=== PATIENT | female | born 1970 | race Caucasian/White ===

== ENCOUNTER 2017-04-11 11:52 | Outpatient (CLI) | payer OTHER ==
[2017-04-11 12:05] LABS: Hemoglobin 12.8 g/dL (12.0-16.0); Mean Corpuscular HGB CONC 31.4 g/dL (32.0-36.0); Mean Corpuscular Hemoglobin 29.1 pg (27.0-31.0); Mean Corpuscular Volume 92.7 fl (81.0-99.0); Mean Platelet Volume 7.6 fL (7.4-10.4); Platelet Count 423 thou/uL (130-400); RBC Distribution Width 15.2 % (11.5-14.5); Red Blood Cell (RBC) Count 4.38 mill/uL (4.20-5.40); White Blood Cell (WBC) Count 7.3 thou/uL (4.8-10.8)
[2017-04-11 12:28] LABS: BHCG - Serum Negative (NEGATIVE); Pregs Control Background? CLEAR/WHITE (CLR/WHITE); Pregs Control Bar Appear? YES (CONTROL BAR)
== END 2017-04-11 11:53 | disposition home or self-care (01) ==
LOC: LABBT 11:52
PROVIDERS: ATTEND Obstetrics & Gynecology
DX: Z01.812 Encounter for preprocedural laboratory examination (principal); N92.0 Excessive and frequent menstruation with regular cycle; D21.9 Benign neoplasm of connective and other soft tissue, unspecified
CPT/HCPCS: 84703; 85027; 86850; 86900; 86901

== ENCOUNTER 2017-04-14 05:49 | Day surgery (SDC) | payer OTHER ==
[2017-04-11 10:51] VITALS: BMI 29.7
--- NOTE | 2017-04-11 12:26 | HP ---
DATE OF PLANNED PROCEDURE: 04/14/2017 PREOPERATIVE DIAGNOSES: 1. Menorrhagia with fibroid uterus. 2. History of anemia. PROCEDURE TO BE PERFORMED: Total laparoscopic hysterectomy with bilateral salpingectomy. HISTORY OF PRESENT ILLNESS: Ms. Sonja Lyn is a 46-year-old G4, P3-0-1-3 who was referred to co f or evaluation of menorrhagia and an abnormal ultrasound. The patient gives a history of many years o f heavy bleeding, passing clots and anemia. She reports minimal cramping. The patient has a long hi story of anemia and in 12/2016 her hemoglobin was approximately 7-8. The patient does not have a his tory of blood transfusion. On the patient's ultrasound she has an enlarged uterus with a 7 cm fibroi d and a thickened endometrial stripe. Her ovaries appear normal. The patient's only other complaint is vaginal discharge with odor that has been going on for approximately 6 months. The patient carly es definitive surgical management with a hysterectomy. The patient's most recent hemoglobin in the o ffice on 03/25/2017 was 10.9. On counseling the patient does accept a blood transfusion if needed du ring or after her procedure. Also of note the patient did try oral contraceptives with continued men orrhagia. MEDICATIONS: Microgestin 120 and iron supplement. ALLERGIES: No known drug or latex allergies. PAST SURGICAL HISTORY: None. OBSTETRICAL HISTORY: Three vaginal deliveries. GYNECOLOGIC HISTORY: Normal Pap smear in 2017. Regular menstrual periods as stated above. No histo ry of STD or PID. SOCIAL HISTORY: The patient does not smoke cigarettes or use tobacco. She does not drink alcohol. She does not use drugs. 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 FAMILY HISTORY: Significant for endometrial cancer in her mother. No hypertension, heart disease or diabetes. No breast, ovarian, or colon cancers noted. REVIEW OF SYSTEMS: Negative except as stated above. PHYSICAL EXAMINATION: VITAL SIGNS: Blood pressure 110/70, weight 160 pounds, BMI 29. GENERAL: No acute distress. Alert and oriented. CARDIOVASCULAR: Regular rate and rhythm. LUNGS: Nonlabored breathing. ABDOMEN: Soft, nontender, no palpable masses, no hernias, no hepatosplenomegaly. GENITOURINARY: Normal external female genitalia. Normal vaginal mucosa, no vaginal or cervical lesi ons. Uterus is enlarged, nontender, no adnexal masses. MUSCULOSKELETAL: Normal range of motion. SKIN: No rashes. LABORATORY DATA: Last hemoglobin 10.9 on 03/25/2017. Endometrial biopsy with late secretory phase e ndometrium. Ultrasound with enlarged uterus with heterogeneous mass that displaces the endometrium, likely a fibroid and approximately 7.3 cm in size. The uterus, otherwise measures 9.5 x 10.6 x 11.6 cm, normal appearing ovaries. ASSESSMENT AND PLAN: Ms. Sonja Lyn is a 46-year-old multiparous female with a history of anemia and long history of menorrhagia who has tried medical management in the past and now desires definiti ve surgical management with a hysterectomy. On the patient's ultrasound she is known to have a fibro id uterus as well as a thickened endometrial stripe with a biopsy that was negative for hyperplasia o r malignancy. The patient has been counseled on her management options and desires to proceed with r obotic assisted total laparoscopic hysterectomy with bilateral salpingectomy. The patient understand s the risks are to include, but not limited to bleeding, infection, damage to intraabdominal organs, possible need for emergent laparotomy, possible need for future medical and/or surgical management, e specially if the pathology is concerning for malignancy. The patient's questions have been answered to her satisfaction. The procedure has been explained in detail by myself in Filipino as well as by h er daughter in Filipino with verbalized understanding. The patient also understands that with hystere ctomy there is no future fertility and that she will no longer be able to conceive or bear children. The patient's questions have been answered to her satisfaction, and she desires to proceed with the procedure as listed above.
[2017-04-14] MEDS ORDERED: CEFAZOLIN/Water 2 GM/20 ML SYRINGE ONE (06:02)
[2017-04-14] MEDS ORDERED: Bupivacaine HCl 0.5%/Epinephrine 1:200,000/PF 30 ml Vial ONE (06:32)
[2017-04-14] MEDS ORDERED: Fentanyl 250 MCG/5 ML VIAL ONE ×2 (07:05→10:28)
[2017-04-14] MEDS ORDERED: Famotidine/PF 20 mg/2ml Vial ONE (07:59)
[2017-04-14] MEDS ORDERED: Albuterol Sulfate HFA (OR ONLY) ONE (10:58)
[2017-04-14] MEDS ORDERED: SUGAMMADEX SODIUM 200 MG/2 ML VIAL ONE (11:05)
[2017-04-14] MEDS ORDERED: Promethazine HCl 25 MG/ML VIAL IM PRN ×2 (11:18→12:07)
[2017-04-14] MEDS ORDERED: Promethazine HCl 25 MG/ML VIAL SLOW IVP PRN (11:18)
[2017-04-14] MEDS ORDERED: Ondansetron HCl/PF 4 MG/2 ML Vial IVP PRN ×2 (11:18→12:07)
[2017-04-14] MEDS ORDERED: Meperidine HCl/PF 25 MG/ML VIAL SLOW IVP PRN (11:18)
[2017-04-14] MEDS ORDERED: Morphine Sulfate 2 MG/ML SYRINGE SLOW IVP PRN (11:18)
[2017-04-14] MEDS ORDERED: Ketorolac Tromethamine 30 MG/ML VIAL IVP SCH (12:00)
[2017-04-14] MEDS ORDERED: Morphine 4 MG/ML Carpuject SLOW IVP PRN (12:07)
[2017-04-14] MEDS ORDERED: diphenhydrAMINE 25 MG CAP PO PRN (12:07)
[2017-04-14] MEDS ORDERED: Acetaminophen/Codeine 30-300mg Tablet PO PRN (12:07)
[2017-04-14] MEDS ORDERED: Bisacodyl 10 MG SUPP PR PRN (12:07)
[2017-04-14] MEDS ORDERED: Simethicone Chewable 80 MG TAB PO PRN (12:07)
[2017-04-14] MEDS ORDERED: Morphine 5 MG/ML SYRINGE SLOW IVP PRN (12:16)
[2017-04-14] MEDS: Lactated Ringer's 1,000 ML IV SCH ×2 (12:41→22:23)
[2017-04-14] MEDS: Sodium Chloride 0.9% 1,000 ML IV SCH (13:48)
--- NOTE | 2017-04-14 15:11 | OP ---
DATE OF PROCEDURE: 04/14/2017 PREOPERATIVE DIAGNOSES: Menorrhagia, dysmenorrhea, fibroid uterus. POSTOPERATIVE DIAGNOSES: Menorrhagia, dysmenorrhea, fibroid uterus. PROCEDURE PERFORMED: Robotic-assisted total laparoscopic hysterectomy with bilateral salpingectomy, lysis of adhesions, and extracorporeal uterine morcellation. SURGEON: Ziyad Turcios D.O. [facility] DIRECTOR: Martha Rodriguez M.D. ANESTHESIA: GETA per Dr. Chapa. COMPLICATIONS: None. ESTIMATED BLOOD LOSS: 75 mL. INTRAOPERATIVE FINDINGS: 1. Enlarged fibroid uterus. Normal-appearing fallopian tubes and ovaries. 2. Uterine specimen too large to pass through the vaginal cuff. 3. Vaginal cuff hemostatic. 4. Filmy adhesions of the omentum to the anterior abdominal wall and uterus. PROCEDURE DETAILS: The patient was taken back to the OR with IV fluids running. Once she was in the OR, she was placed in dorsal supine position and anesthesia was obtained. After the patient was asl eep, she was placed in low dorsal lithotomy position with her arms positioned at her side. The abdom en and vagina were then prepped and draped in normal fashion for gynecologic laparoscopy. The bladde r was drained, and a Street catheter with a Harriett syringe at the Street tip were assembled and placed in the routine fashion, 300 mL of urine were noted at this time. An operative speculum was then plac ed into the vagina. Paracervix was noted with no cervical or vaginal lesions. The uterus sounded to approximately 11 cm. A FAVIAN Shelley manipulator was assembled with a 10 cm tip and a 4 cm coring. It w as placed into the uterus and vagina in normal fashion. Once the uterine manipulator was in place, t he speculum and tenaculum were removed. The surgeon's gloves were changed and attention was turned t o laparoscopic portion of the case with the uterine manipulator in, and the uterus palpated to approx imately 2-3 cm above the umbilicus. A 0.25% lidocaine was placed underneath the skin and the subcuta neous tissue and fascia. A 12 mm skin incision was made with the scalpel and a Veress needle was pas sed through the skin incision into the peritoneal cavity and the abdomen was then insufflated without difficulty. After the abdomen was insufflated, a 12 mm trocar was placed through this site and the laparoscope was placed through the port with the above findings noted. Next, under direct visualizat ion in similar fashion, 3 additional ports were placed with 1 right lower quadrant, 1 left lower quad rant, and 1 right upper quadrant ports placed under direct visualization without difficulty. The two 8 mm ports were placed in the right and left lower quadrant to be used for docking robotic arms. In the right upper quadrant, an 11 mm port was placed for use by the assistant superintendent. Once all [address], the robotic arms were docked and the surgeon moved to the operative console. Beginning wit h the lysis of adhesions, the filmy omental adhesions were taken off the anterior abdominal wall, erick angelia, and adnexa. This was done primarily with fine dissection with the monopolar scissors and gentle blunt dissection with minimal cautery needed. Once the omentum was freed from the abdominal wall, t he enlarged uterus and adnexa were well visualized. While the uterus was very large, it was noted to be very mobile and adequate space was demonstrated in the adnexa as well as the cul-de-sac for the p lanned dissection. Beginning on the patient's left side, the left fallopian tube was grasped with a grasper, elevated away from the pelvic sidewall, and dissected away using bipolar and monopolar caute ry from the ovary, mesosalpinx, and uterus. It was transected and removed from operative field. The utero-ovarian ligament was then cauterized and divided. There were some adhesions between the left ovary and the uterus that were taken down with monopolar cautery. When the ovary was freed away from the uterus and fell away to the pelvic sidewall, attention was turned to the round ligament on the p atient's left side. It was noted to be very attenuated, but was able to be cauterized and divided in to anterior and posterior leaves. The anterior leaf of the round ligament was taken down towards the anterior aspect of the uterus for planned bladder flap. The posterior leaf was taken down as well. The uterine arteries on the patient's left side were skeletonized and cauterized with bipolar cauter y. The bladder flap on the patient's left side was taken across the anterior aspect of the uterus an d the cervix and the bladder was gently dissected away from the planned colpotomy site. Once the blo od supply was secured on the patient's left side, the dissection was turned to the contralateral side . The right fallopian tube was grasped and elevated away from the pelvic sidewall. Bipolar cautery was used to dissect the right fallopian tube from the ovary, mesosalpinx, and the uterus on the patie nt's right side. It was then transected and removed from the surgical field. The right uterine flor ry ligament was then cauterized with bipolar cautery and scissors were used to dissect it away from t he uterus. The ovary then fell away to the right pelvic sidewall, the round ligament on the patient' s right side was cauterized, incised, and divided into anterior and posterior leaves, was taken down towards the level of the uterine artery, which was then skeletonized with good visualization of the u terine arteries. They were then cauterized with bipolar cautery and transected with monopolar scisso rs with hemostasis noted. The bladder flap was then completed from the right to the contralateral si de. The bladder was easily dissected away from the planned colpotomy site. The bladder was then mora k filled and noted to be well away from the colpotomy site. Once the blood supply had been secured c ircumferentially around the uterus and the bladder dissected well away from the uterus, the colpotomy portion of the procedure began. Beginning posteriorly, the colpotomy was performed using monopolar scissors. Once the uterine specimen was completely dissected from the vaginal cuff, the cervix was g rasped from below and attempted to deliver the uterus through the vaginal cuff. Despite the uterine specimen being surprisingly soft, it proved to be too large for a safe vaginal removal. At this poin t, decision was made to proceed with an ExCITE technique for removal of the uterine specimen. The ut erus was then retracted into the abdomen. A sterile glove was placed into the vagina to retain pneum operitoneum. The vaginal cuff and pedicle sites were copiously irrigated with no areas of bleeding n oted. After irrigating and suctioning dry the pelvis, the vaginal cuff was closed with Stratafix sut ure in 2 layers. After the vaginal cuff was closed, it was irrigated again with a small area of blee ding just noted in between the sutures on the posterior cuff. This was controlled with bipolar caute ry and with hemostasis noted. After the vaginal cuff closure was complete and the pedicles inspected with no areas of bleeding noted, the ureters were identified and noted to be vermiculating through t he pelvis. Next, attention was turned towards the ExCITE portion of the procedure. The robotic arms were undocked from the trocars. The supraumbilical port was removed. The fascia at the level of th e supraumbilical port was then extended to approximately 2-2.5 cm. Once this incision and the fascia had been extended, a small Tejinder retractor was placed through this incision. Once this retractor w as in, the specimen bag was placed through this port site into the pelvis. The laparoscope was then placed through the supraumbilical port with tension around the retractor and the trocar allowing for pneumoperitoneum to be recreated. Under direct visualization, the specimen bag was then opened. The uterine specimen was then placed into the bag. The bag was then cinched with a pursestring suture t hat had been placed into the bag and the string was then brought through the supraumbilical port. Wi th the specimen secured in the bag, the ports were removed. The pneumoperitoneum was released from t he abdomen and the edges of the bag were delivered through the supraumbilical port. The Tejinder retra ctor was then removed. It was replaced within the bag to protect the soft tissue and to allow for be tter visualization during the extracorporeal morcellation. The cervix and the specimen was brought u p through the supraumbilical incision and a coring technique was used to morcellate the entire uterus fibroid cervix specimen. This additional morcellation, at approximately 20-25 minutes to the case, however, was able to be completed all within the self-contained bag. Once morcellation was complete, the bag and Tejinder retractor were removed. The incision was irrigated and dried. The gas was relea sed from the abdomen with all the trocars removed. Fascia was identified at the supraumbilical incis ion and closed with Vicryl suture. After the fascia was closed, all 4 skin incisions were closed wit h Monocryl suture and dressed with Dermabond dressing. The abdomen was cleaned and dried. The vagin a was inspected as well as the vaginal cuff with no bleeding noted. The patient was then taken out o f lithotomy position. She was extubated, and transferred to the recovery room in good condition.
[2017-04-14] MEDS: Acetaminophen/Codeine 30-300mg Tablet PO PRN ×2 (15:15→20:12)
[2017-04-14] MEDS: Ketorolac Tromethamine 30 MG/ML VIAL IVP SCH ×2 (15:58→22:20)
[2017-04-14] MEDS ORDERED: Dexamethasone 20 MG/5 ML VIAL ONE (17:13)
[2017-04-14] MEDS ORDERED: Glycopyrrolate 0.2 MG/ML 5 ML SYRINGE ONE (17:13)
[2017-04-14] MEDS ORDERED: Lidocaine 1% PF 5 ML VIAL ONE (17:13)
[2017-04-14] MEDS ORDERED: PROPOFOL 200 MG/20 ML VIAL ONE (17:13)
[2017-04-14] MEDS ORDERED: Ketorolac Tromethamine 30 MG/ML VIAL ONE (17:13)
[2017-04-14] MEDS ORDERED: Ondansetron HCl/PF 4 MG/2 ML Vial ONE (17:13)
[2017-04-15] MEDS: Sodium Chloride 0.9% 1,000 ML IV SCH ×2 (05:10→05:11)
[2017-04-15] MEDS: Ketorolac Tromethamine 30 MG/ML VIAL IVP SCH (05:53)
[2017-04-15] MEDS: Lactated Ringer's 1,000 ML IV SCH (05:58)
[2017-04-15 06:03] LABS: Hemoglobin 11.5 g/dL (12.0-16.0); Mean Corpuscular HGB CONC 32.4 g/dL (32.0-36.0); Mean Corpuscular Hemoglobin 29.6 pg (27.0-31.0); Mean Corpuscular Volume 91.2 fl (81.0-99.0); Mean Platelet Volume 6.9 fL (7.4-10.4); Platelet Count 362 thou/uL (130-400); RBC Distribution Width 15.2 % (11.5-14.5); White Blood Cell (WBC) Count 11.4 thou/uL (4.8-10.8)
[2017-04-15 07:51] VITALS: BP 134/63; TEMP 98.2
--- NOTE | 2017-04-15 08:21 | PDOC.EVN ---
Event Note - Event Note Event Note: POD1 S: minimal discomfort, ambulating, tolerating reg diet, no bleeding, voiding O: Vital Signs (24 hours) Temp Pulse Resp BP Pulse Ox 04/15/17 07:51 98.2 F 72 20 134/63 04/14/17 20:00 98.7 F 85 18 130/58 L 04/14/17 16:35 98.6 F 92 18 144/65 H 04/14/17 15:20 97 18 136/79 04/14/17 14:30 78 18 140/60 04/14/17 13:30 101 H 18 144/65 H 04/14/17 13:00 96 18 142/65 H 04/14/17 12:30 97.8 F 87 18 151/67 H 04/14/17 12:00 97.8 F 88 18 148/71 H 97 Gen: NAD A and O, sitting up in chair Chest: nonlabored breathing Abd: incision CDI x 4, nondistended appropriate post op tenderness Ext: no cords Laboratory Results - last 24 hr 04/15/17 05:13 WBC 11.4 H RBC 3.90 L Hgb 11.5 L Hct 35.6 L MCV 91.2 MCH 29.6 MCHC 32.4 RDW 15.2 H Plt Count 362 MPV 6.9 L A/P:POD1 STERLING BS w EXCITE morcellation for large fibroid uterus. POD 1 doing very well, plan for DC this AM.
[2017-04-19] MEDS ORDERED: Ibuprofen 800 MG TAB PO SCH (22:00)
== END 2017-04-15 10:12 | disposition home or self-care (01) ==
LOC: SURG A 05:49 → SDC 05:49 → UNDOADMIN 05:49 → EDSTATUS 11:00 → 3SW 11:55 → SURG A 11:55 → UNDODISIN 04-15 10:12 → SDC 04-15 10:12
PROVIDERS: ATTEND Obstetrics & Gynecology
PROC: 0UT94ZZ Resection of Uterus, Percutaneous Endoscopic Approach (ICD-10-PCS; principal; 2017-04-15)
PROC: 0UT74ZZ Resection of Bilateral Fallopian Tubes, Percutaneous Endoscopic Approach (ICD-10-PCS; principal; 2017-04-15)
DX: N87.9 Dysplasia of cervix uteri, unspecified (principal); N85.8 Other specified noninflammatory disorders of uterus; N80.0 Endometriosis of uterus; D25.9 Leiomyoma of uterus, unspecified; D64.9 Anemia, unspecified; Z79.899 Other long term (current) drug therapy
CPT/HCPCS: 36415; 85027; 88307; J2270; J0131; J0670; J1100; J1885; J2001; J2405; J2704; J3010; S0028